=== PATIENT | male | born 1955 | race African-American/Black ===

== ENCOUNTER 2019-11-02 23:00 | Emergency (ER) | payer OTHER ==
[~2019-11-02] VITALS: Ht 172.7 cm; Wt 83.9 kg
[~2019-11-02 23:00] MED LIST: GABA-488 PO; GABAPENTIN; OXYC1TAB87 PO; QUET50TA55 PO; RANI150T11 PO; RANITIDINE; SEROQUEL; SERT50TA9 PO
--- NOTE | 2019-11-02 23:02 | NUR ---
PATIENT ARRIVES VIA EMS REPORT STATES PATIENT WAS FOUND IN BACK ROOM OF A MOBILE HOME LAYING ON A BED WITHOUT BLANKETS AND ROOM WAS FOUND TO BE COLD. REPORTING [employer] STATES PATIENT WAS HOMELESS AND THEY GAVE HIM A PLACE TO STAY AND HE WOULD NOT WAKE OR RESPOND WHEN THEY TRIED TO WAKE HIM SO EMS WAS CALLED. AT THIS TIME PATIENT'S EYES ARE OPEN HOWEVER DOES NOT ENGAGE WITH STAFF WITH VERBAL STIMULATION. PATIENT IS RESPONSIVE TO PAIN AND MOVING HEAD FROM SIDE TO SIDE. WARM BLANKETS APPLIED AT 2305 BEAR HUGGER APPLIED AT 2310
[2019-11-02] MEDS ORDERED: NALOXONE 0.4 MG/ML 1 ML (NARCAN) VIAL ONE (23:09)
[2019-11-02] MEDS ORDERED: NALOXONE 2 MG/2 ML (NARCAN) SYR ONE (23:09)
--- NOTE | 2019-11-02 23:12 | NUR ---
2312-iSJORDINT PERFORMED AT THIS TIME, BUT iSTAT MACHINE TIME OFF BY ONE HOUR AND READS 0012 WHICH IS NOT CORRECT.
[2019-11-02] MEDS ORDERED: NALOXONE 0.4 MG/ML 1 ML (NARCAN) VIAL IV ONE (23:15)
[2019-11-02 23:19] LABS: BASOPHILS % (AUTO) 0 % (0-10); EOSINOPHILS % (AUTO) 0 % (0-10); HEMATOCRIT 28 % (40-54); HEMOGLOBIN 10.7 G/DL (13.3-17.7); LYMPHOCYTES # (AUTO) 0.9 X 10^3 (1.0-4.0); LYMPHOCYTES % (AUTO) 5 % (12-44); MEAN CORPUSCULAR HEMOGLOBIN 33 PG (25-34); MEAN CORPUSCULAR HGB CONC 39 G/DL (32-36); MEAN CORPUSCULAR VOLUME 87 FL (80-99); MONOCYTES # (AUTO) 0.6 X 10^3 (0.0-1.0); MONOCYTES % (AUTO) 3 % (0-12); NEUTROPHILS # (AUTO) 16.6 X 10^3 (1.8-7.8); NEUTROPHILS % (AUTO) 92 % (42-75); PLATELET COUNT 197 10^3/uL (130-400); RED CELL DISTRIBUTION WIDTH 22.1 % (10.0-14.5); WHITE BLOOD COUNT 18.1 10^3/uL (4.3-11.0)
[2019-11-02] MEDS ORDERED: NALOXONE 2 MG/2 ML (NARCAN) SYR IV ONE (23:30)
[2019-11-02 23:38] LABS: LYMPHOCYTES % (MANUAL) 7 %; MONOCYTES % (MANUAL) 1 %; NEUTROPHILS % (MANUAL) 92 %; NUCLEATED RED BLOOD CELLS 1
[2019-11-02 23:39] LABS: ANISOCYTOSIS SLIGHT; TARGET CELLS SLIGHT
[2019-11-02 23:46] LABS: AMMONIA 313 UMOL/L (11-32); INR 5.1 (0.8-1.4); PROTHROMBIN TIME PATIENT 49.5 SEC (12.2-14.7)
[2019-11-02 23:48] LABS: CLARITY,URINE CLOUDY; COLOR,URINE BROWN; GLUCOSE, URINE (UA) NEGATIVE (NEGATIVE); KETONES,URINE TRACE (NEGATIVE); NITRITE,URINE NEGATIVE (NEGATIVE); PH,URINE 6.5 (5-9); PROTEIN,URINE 2+ (NEGATIVE)
[2019-11-02 23:49] LABS: LEUKOCYTE ESTERASE ,URINE TRACE (NEGATIVE)
[2019-11-02 23:49] LABS: ACETAMINOPHEN < 10 UG/ML (10-30); ALANINE AMINOTRANSFERASE 39 U/L (0-55); ALBUMIN 2.1 GM/DL (3.2-4.5); ALKALINE PHOSPHATASE 177 U/L (40-136); BUN/CREATININE RATIO 11; CALCIUM 7.1 MG/DL (8.5-10.1); CHLORIDE 96 MMOL/L (98-107); CREATININE SERUM 12.99 MG/DL (0.60-1.30); GFR ESTIMATED 5; GLUCOSE 233 MG/DL (70-105); POTASSIUM 4.6 MMOL/L (3.6-5.0); SALICYLATE < 5.0 MG/DL (5.0-20.0); SODIUM 131 MMOL/L (135-145); TOTAL PROTEIN 5.9 GM/DL (6.4-8.2)
[2019-11-02 23:51] LABS: CARBON DIOXIDE 6 MMOL/L (21-32)
[2019-11-02 23:56] LABS: RBC,URINE >100 /HPF
[2019-11-02 23:57] LABS: WBC,URINE 25-50 /HPF
[2019-11-02 23:58] LABS: AMPHETAMINE SCREEN, URINE NEGATIVE (NEGATIVE); BACTERIA,URINE FEW /HPF; BARBITURATE SCREEN URINE NEGATIVE (NEGATIVE); BENZODIAZEPINES SCREEN URINE NEGATIVE (NEGATIVE); CANNABINOID SCREEN, URINE POSITIVE (NEGATIVE); COCAINE SCREEN URINE NEGATIVE (NEGATIVE); METHADONE STAT NEGATIVE (NEGATIVE); METHAMPHETAMINE SCREEN URINE S NEGATIVE (NEGATIVE); OPIATE SCREEN URINE NEGATIVE (NEGATIVE); OXYCODONE STAT NEGATIVE (NEGATIVE); PROPOXYPHENE STAT NEGATIVE (NEGATIVE); TRICYCLIC ANTIDEPRESSANTS SCRE NEGATIVE (NEGATIVE)
[2019-11-03] MEDS ORDERED: SODIUM BICARB 8.4% 50 MEQ/50 ML VIAL IV ONE ×2
[2019-11-03 00:08] LABS: BILIRUBIN,URINE 3+ (NEGATIVE)
[2019-11-03] MEDS ORDERED: CEFEPIME INJECTION 1,000 MG in WATER (STERILE) FOR INJECTION 10 ML IV ONE (00:15)
--- NOTE | 2019-11-03 00:33 | ED General ---
General Chief Complaint: Altered Mental Status Stated Complaint: AMS Nursing Sepsis Screen: No Definite Risk Source of Information: EMS, Family, Old Records Exam Limitations: No Limitations History of Present Illness Date Seen by Provider: Nov 02, 2019 Time Seen by Provider: 23:02 Initial Comments This 63-year-old man is brought to the emergency room via EMS after being found unresponsive in the bedroom lying on a bed. EMS reports that he is essentially homeless and was staying in the home of some acquaintances. He has a long-term history of alcohol use and hepatitis. There may also be other substance abuse according to his family who presented a short time later. Patient was minimally responsive for EMS. He is hypothermic on arrival with a rectal temperature of approximately 85F. No trauma was suspected. Patient had bradycardia in the 30s for EMS and atropine was administered with good response. Patient's sister notes that she had a conversation with him by phone yesterday and he seemed at baseline. The acquaintances with him he was staying stated he had not been acting right since yesterday. Family also reports he has not been feeling well recently and had a recent visit at her doctor's office where antibiotics were prescribed. Allergies and Home Medications Allergies Coded Allergies: No Known Drug Allergies (Unverified , 04/04/11) Home Medications Gabapentin 300 Mg Capsule, 600 MG PO TID, (Reported) LAST FILLED #540 09-25-17 Oxycodone HCl/Acetaminophen 1 Each Tablet, 1-2 TAB PO Q4H PRN for PAIN-MILD TO MODERATE Prescribed by: ROB FLANAGAN on 03/23/18 0934 Quetiapine Fumarate 50 Mg Tablet, 50 MG PO HS, (Reported) LAST FILLED #30 18 Ranitidine HCl 150 Mg Tablet, 150 MG PO DAILY PRN for HEARTBURN, (Reported) Sertraline HCl 50 Mg Tablet, 50 MG PO DAILY, (Reported) LAST FILLED #30 01-10-18 Patient Home Medication List Home Medication List Reviewed: Yes Review of Systems Review of Systems Constitutional: see HPI EENTM: other (scleral icterus) Respiratory: no symptoms reported Cardiovascular: no symptoms reported Gastrointestinal: no symptoms reported Genitourinary: see HPI Musculoskeletal: no symptoms reported Skin: see HPI Psychiatric/Neurological: See HPI Hematologic/Lymphatic: No Symptoms Reported Immunological/Allergic: no symptoms reported Past Azhyzfa-Xizzgi-Sfugiw Hx Past Med/Social Hx: Reviewed Nursing Past Med/Soc Hx Patient Social History Alcohol Beverage of Choice: Beer Drug of Choice: POT Type Used: Cigars Recent Foreign Travel: No Contact w/Someone Who Travel: No Recent Hopitalizations: No Immunizations Up To Date Tetanus Booster (TDap): Unknown Seasonal Allergies Seasonal Allergies: No Past Medical History Surgeries: Yes (HEAD) Respiratory: No Cardiac: No Neurological: No Genitourinary: No Gastrointestinal: Yes Hepatitis Musculoskeletal: Yes Arthritis Endocrine: No HEENT: No Cancer: No Psychosocial: Yes Bipolar Integumentary: No Blood Disorders: No Family Medical History Patient reports no known family medical history. Physical Exam Vital Signs Vital Signs - First Documented 11/02/19 23:38 Temp 30.0 Pulse 51 Resp 17 B/P (MAP) 102/63 O2 Delivery Room Air Capillary Refill : Less Than 3 Seconds Height, Weight, BMI Height: 5'9.00" Weight: 170lbs. 0.0oz. [id number]; 25.1 BMI Method:Stated General Appearance: No Apparent Distress, Other (Minimally responsive) HEENT: PERRL/EOMI, Other (mouth clenched shut. Pupils equally round and reactive. Scleral icterus noted) Neck: Normal Inspection Respiratory: Lungs Clear, Normal Breath Sounds, No Accessory Muscle Use, No Respiratory Distress Cardiovascular: No Edema, No Murmur, Bradycardia Gastrointestinal: Normal Bowel Sounds, Non Tender, Soft Extremity: Normal Inspection, No Pedal Edema Neurologic/Psychiatric: Other (minimally responsive) Skin: Warm/Dry, Jaundice Focused Exam Lactate Level 11/02/19 23:05: Lactic Acid Level 3.37*H Lactic Acid Level Laboratory Tests Test 11/02/19 23:05 Lactic Acid Level 3.37 MMOL/L (0.50-2.00) *H Progress/Results/Core Measures Suspected Sepsis Recent Fever Within 48 Hours: No Infection Criteria Present: Suspected New Infection New/Unexplained Altered Menta: Yes Sepsis Screen: No Definite Risk SIRS Temperature: Pulse: 51 Respiratory Rate: 17 Laboratory Tests 11/02/19 23:05: White Blood Count 18.1H Blood Pressure 102 /63 Mean: 76 11/02/19 23:05: Lactic Acid Level 3.37*H Laboratory Tests 11/02/19 23:05: Creatinine 12.99H, INR Comment 5.1*H, Platelet Count 197, Total Bilirubin 33.0*H Results/Orders Lab Results Laboratory Tests Test 11/02/19 23:05 11/02/19 23:11 11/02/19 23:30 Range/Units White Blood Count 18.1 H 4.3-11.0 10^3/uL Red Blood Count 3.21 L 4.35-5.85 10^6/uL Hemoglobin 10.7 L 13.3-17.7 G/DL Hematocrit 28 L 40-54 % Mean Corpuscular Volume 87 80-99 FL Mean Corpuscular Hemoglobin 33 25-34 PG Mean Corpuscular Hemoglobin Concent 39 H 32-36 G/DL Red Cell Distribution Width 22.1 H 10.0-14.5 % Platelet Count 197 130-400 10^3/uL Mean Platelet Volume 11.0 H 7.4-10.4 FL Neutrophils (%) (Auto) 92 H 42-75 % Lymphocytes (%) (Auto) 5 L 12-44 % Monocytes (%) (Auto) 3 0-12 % Eosinophils (%) (Auto) 0 0-10 % Basophils (%) (Auto) 0 0-10 % Neutrophils # (Auto) 16.6 H 1.8-7.8 X 10^3 Lymphocytes # (Auto) 0.9 L 1.0-4.0 X 10^3 Monocytes # (Auto) 0.6 0.0-1.0 X 10^3 Eosinophils # (Auto) 0.0 0.0-0.3 10^3/uL Basophils # (Auto) 0.0 0.0-0.1 10^3/uL Neutrophils % (Manual) 92 % Lymphocytes % (Manual) 7 % Monocytes % (Manual) 1 % Nucleated Red Blood Cells 1 Anisocytosis SLIGHT Target Cells SLIGHT Prothrombin Time 49.5 *H 12.2-14.7 SEC INR Comment 5.1 *H 0.8-1.4 Activated Partial Thromboplast Time 74 H 24-35 SEC Sodium Level 131 L 135-145 MMOL/L Potassium Level 4.6 3.6-5.0 MMOL/L Chloride Level 96 L 98-107 MMOL/L Carbon Dioxide Level 6 *L 21-32 MMOL/L Anion Gap 29 H 5-14 MMOL/L Blood Urea Nitrogen 138 *H 7-18 MG/DL Creatinine 12.99 H 0.60-1.30 MG/DL Estimat Glomerular Filtration Rate 5 BUN/Creatinine Ratio 11 Glucose Level 233 H 70-105 MG/DL Lactic Acid Level 3.37 *H 0.50-2.00 MMOL/L Calcium Level 7.1 L 8.5-10.1 MG/DL Corrected Calcium 8.6 8.5-10.1 MG/DL Total Bilirubin 33.0 *H 0.1-1.0 MG/DL Aspartate Amino Transf (AST/SGOT) 113 H 5-34 U/L Alanine Aminotransferase (ALT/SGPT) 39 0-55 U/L Alkaline Phosphatase 177 H 40-136 U/L Ammonia 313 H 11-32 UMOL/L Total Protein 5.9 L 6.4-8.2 GM/DL Albumin 2.1 L 3.2-4.5 GM/DL Salicylates Level < 5.0 L 5.0-20.0 MG/DL Acetaminophen Level < 10 L 10-30 UG/ML Serum Alcohol < 10 <10 MG/DL Glucometer 255 H 70-110 MG/DL Urine Color BROWN H Urine Clarity CLOUDY Urine pH 6.5 5-9 Urine Specific Dozier 1.020 1.016-1.022 Urine Protein 2+ H NEGATIVE Urine Glucose (UA) NEGATIVE NEGATIVE Urine Ketones TRACE H NEGATIVE Urine Nitrite NEGATIVE NEGATIVE Urine Bilirubin 3+ H NEGATIVE Urine Urobilinogen 1.0 < = 1.0 MG/DL Urine Leukocyte Esterase TRACE NEGATIVE Urine RBC (Auto) 3+ H NEGATIVE Urine RBC >100 H /HPF Urine WBC 25-50 H /HPF Urine Crystals PRESENT H /LPF Urine Leucine Crystals FEW H /LPF Urine Bacteria FEW H /HPF Urine Casts PRESENT /LPF Urine Granular Casts 5-10 H /LPF Urine Mucus NEGATIVE /LPF Urine Culture Indicated CULTURE PENDING Urine Opiates Screen NEGATIVE NEGATIVE Urine Oxycodone Screen NEGATIVE NEGATIVE Urine Methadone Screen NEGATIVE NEGATIVE Urine Propoxyphene Screen NEGATIVE NEGATIVE Urine Barbiturates Screen NEGATIVE NEGATIVE Ur Tricyclic Antidepressants Screen NEGATIVE NEGATIVE Urine Phencyclidine Screen NEGATIVE NEGATIVE Urine Amphetamines Screen NEGATIVE NEGATIVE Urine Methamphetamines Screen NEGATIVE NEGATIVE Urine Benzodiazepines Screen NEGATIVE NEGATIVE Urine Cocaine Screen NEGATIVE NEGATIVE Urine Cannabinoids Screen POSITIVE H NEGATIVE My Orders Orders - SÁNCHEZ XAVIER MD Cbc With Automated Diff (11/02/19 23:08) Comprehensive Metabolic Panel (11/02/19 23:08) Blood Culture (11/02/19 23:08) Sputum Culture (11/02/19 23:08) Urinalysis (11/02/19 23:08) Urine Culture (11/02/19 23:08) Protime With Inr (11/02/19:08) Partial Thromboplastin Time (11/02/19 23:08) Ed Iv/Invasive Line Start (11/02/19 23:08) Ed Iv/Invasive Line Start (11/02/19 23:08) Vital Signs Adult Sepsis Patie Q15M (11/02/19 23:08) O2 (11/02/19 23:08) Remove Rings In Anticipation O (11/02/19 23:08) Lactic Acid Analyzer (11/02/19:08) Ammonia (11/02/19:08) I-Stat Bedside Testing (11/02/19 23:08) Acetaminophen (11/02/19 23:10) Alcohol (11/02/19 23:10) Drug Screen Stat (Urine) (11/02/19 23:10) Salicylate (11/02/19 23:10) Naloxone Injection (Narcan Injection) (11/02/19 23:15) Naloxone Injection (Narcan Injection) (11/02/19 23:09) Naloxone Injection (Narcan Injection) (11/02/19 23:09) Manual Differential (11/02/19 23:05) Naloxone Injection (Narcan Injection) (11/02/19 23:30) Sodium Bicarbonate 8.4% Vial (Sodium Bic (11/03/19 00:00) Sodium Bicarbonate 8.4% Vial (Sodium Bic (11/03/19 00:00) Wright Cath (11/03/19 00:01) Cefepime Injection (Maxipime Injection) (11/03/19 00:15) Ct Head Wo (11/03/19 23:10) Chest 1 View, Ap/Pa Only (11/03/19 23:08) Medications Given in ED Current Medications Medications Dose Ordered Sig/Christie Route Start Time Stop Time Status Last Admin Dose Admin Cefepime HCl 1000 mg/Sterile Water 10 ml @ 200 mls/hr ONCE ONCE IV 11/03/19 00:15 11/03/19 00:17 DC 11/03/19 00:31 200 MLS/HR Sodium Bicarbonate 50 meq ONCE ONCE IV 11/03/19 00:00 11/03/19 00:01 DC 11/03/19 00:30 50 MEQ Sodium Bicarbonate 50 meq ONCE ONCE IV 11/03/19 00:00 11/03/19 00:01 DC 11/03/19 00:31 50 MEQ Vital Signs/I&O 11/02/19 23:38 Temp 30.0 Pulse 51 Resp 17 B/P (MAP) 102/63 O2 Delivery Room Air 11/03/19 00:00 Intake Total 500 ml Balance 500 ml Capillary Refill : Less Than 3 Seconds Blood Pressure Mean: 76 POS Progress Note #1: Time: 00:24 Progress Note Critical interventions were initiated upon patient arrival. He was found to have a core body temperature of approximately 85F. 2 L of warm normal saline were initiated in addition to warm blankets and a bear hugger warmer. Patient received 2 doses of Narcan 0.4 mg which did seem to improve his mental status. He is now moving spontaneously and moaning and groaning. He does not have meaningful vocalizations and is not following instructions. Airway is protected. I-STAT was obtained immediately and a creatinine of 14 was noted. Labs have since returned confirming severe renal failure and severe hepatic failure. [facility] is on full admission diversion. I discussed options with family and they requested transfer to [facility] in [place]. Case was discussed with Dr. Martinez, apparel cutter, who graciously accepted the transfer. He requested CT of the head and 2 A of sodium bicarbonate be administered before transfer. CT of the head was obtained. Unfortunately, quality was rather poor as patient would not hold his head still. No hemorrhage was identified. Patient's systolic blood pressure has remained stable in the 90s with fluid resuscitation. Heart rate remains in the 40s and 50s. Cefepime 1 g was ordered for empiric treatment of possible sepsis. Wright catheter was placed and yielded brown urine. [facility] has been launched for transfer. Progress Note #2: Time: 01:10 Progress Note Patient is now departing for [facility] with [facility]. Final temperature on departure was 89F. He continued to maintain his airway and was swallowing. Dr. Martinez was updated. ECG Initial ECG Impression Date: Nov 02, 2019 Initial ECG Impression Time: 23:06 Initial ECG Rate: 65 Initial ECG Rhythm: Normal Sinus Comment Sinus rhythm with no ST elevation or depression. Patient had bradycardia on monitor but not on this EKG. Diagnostic Imaging Diagonstic Imaging: CT Plain Films/CT/US/NM/MRI: head Comments CT head was viewed by me. [facility] report reviewed. There is significant artifact due to motion. However, no significant intracranial bleed or mass was identified. Diagonstic Imaging: Xray Plain Films/CT/US/NM/MRI: chest Comments Chest x-ray viewed by me. Report not yet available. Right lower lobe infiltrate suspicious for pneumonia or aspiration. Critical Care Note Critical Care Start Time: 23:02 Stop Time: 01:10 Total Time (minutes) 128 Departure Impression Primary Impression: Acute renal failure Qualified Codes: N17.9 - Acute kidney failure, unspecified Additional Impressions: Hepatic failure Qualified Codes: K72.91 - Hepatic failure, unspecified with coma Hyperammonemia Hyperbilirubinemia Altered mental status Qualified Codes: R41.82 - Altered mental status, unspecified Hypothermia Qualified Codes: T68.XXXA - Hypothermia, initial encounter Lactic acidosis Sinus bradycardia Right lower lobe pulmonary infiltrate Disposition: XF SHT-TRM HOSP Condition: Stable Transfer Transfer Reason: Exceeds level of care Time Spoke to Accepting Phy: 23:40 Transfer Progress Notes Transfer accepted by Dr. Martinez, apparel cutter at [facility] Transfer Time: 01:10 Transfer Facility: [facility] Method of Transfer: Air Departure-Patient Inst. Referrals: NO,LOCAL PHYSICIAN (PCP/Family) Primary Care Physician SÁNCHEZ XAVIER MD Nov 03, 2019 00:33 POS
[2019-11-03 01:00] VITALS: BP 124/104
[2019-11-03] MEDS ORDERED: NALOXONE 0.4 MG/ML 1 ML (NARCAN) VIAL IV ONE (02:15)
[2019-11-03] MEDS ORDERED: NS IV 1000 ML 1,000 ML IV ONE ×2 (02:23)
--- NOTE | 2019-11-03 06:31 | Diagnostic Imaging Report ---
PROCEDURE: CT head without contrast. TECHNIQUE: Multiple contiguous axial images were obtained through the brain without the use of intravenous contrast. Auto Exposure Controls were utilized during the CT exam to meet ALARA standards for radiation dose reduction. INDICATION: Altered mental status and confusion. Comparison made with prior examination from 03/21/2018. FINDINGS: Examination is compromised due to motion. There is prominence of the ventricles and sulci. There is no hydrocephalus. There is no midline shift. There is no mass, hemorrhage or extra-axial fluid collection. The calvarium is intact. The sinuses and mastoid air cells are clear. IMPRESSION: Examination is technically limited due to motion. There is some atrophy and mild chronic microvascular ischemic disease. No other acute intracranial abnormality Dictated by: Dictated on workstation # [id number]
--- NOTE | 2019-11-03 07:06 | Diagnostic Imaging Report ---
INDICATION: Shortness of breath. No prior examinations are available for comparison FINDINGS: The heart size is normal. Mediastinum is unremarkable. There is a right basilar pneumonia. No pleural effusion or pneumothorax. Mediastinum is unremarkable. IMPRESSION: Right basilar pneumonia. Dictated by: Dictated on workstation # [id number]
== END 2019-11-03 01:05 | disposition short-term general hospital (02) ==
LOC: EDUNIT# 23:00 → ER 23:02
DX: N17.9 Acute kidney failure, unspecified (principal); K72.90 Hepatic failure, unspecified without coma; E72.20 Disorder of urea cycle metabolism, unspecified; E80.7 Disorder of bilirubin metabolism, unspecified; R41.82 Altered mental status, unspecified; R68.0 Hypothermia, not associated with low environmental temperature; E87.2 Acidosis; R00.1 Bradycardia, unspecified; R91.8 Other nonspecific abnormal finding of lung field; F31.9 Bipolar disorder, unspecified; Z87.19 Personal history of other diseases of the digestive system
CPT/HCPCS: 36415; 51702; 70450; 71045; 80053; 80306; 80320; 80329; 81000; 82140; 82962; 83605; 85007; 85027; 85610; 85730; 87040; 87077; 87088; 96361; 96374; 96375